=== PATIENT | male | born 1970 | race Hispanic/Latino ===

== ENCOUNTER 2018-03-14 07:10 | Emergency (ER) | payer BC ==
[2018-03-14 07:35] VITALS: TEMP 97.2; BMI 33.0
[2018-03-14] MEDS ORDERED: DiphenhydrAMINE 50 mg/ml Inj IM STA (08:01)
[2018-03-14] MEDS ORDERED: MethylPREDNISolone Depo 40 mg/ml Inj IM STA (08:01)
--- NOTE | 2018-03-14 08:06 | ED PDOC ---
Arrival/HPI - General Chief Complaint: Back Pain Time Seen by Provider: 03/14/18 07:55 Historian: Patient - History of Present Illness Narrative History of Present Illness (Text): 03/14/18 08:02 Evgeny Oneill is a 47 year old male with no significant past medical history, who presents to the emergency department complaining of left lower back pain radiating down his left lower extremity. The patient states that his symptoms began 2 days ago and has been experiencing difficulty sitting since then. He notes that 2 days ago he was removing a pool cover with his son. He states that walking relieves some of his discomfort. The patient is requesting pain medication. He denies fevers, chills, headache, dizziness, chest pain, shortness of breath, dyspnea on exertion, cough, abdominal pain, nausea, vomiting, diarrhea, neck pain, urinary/bowel changes, or any other complaint. PMD: Dr. Vikas Cruz Time/Duration: Other (2 Days) Symptom Onset: Sudden Symptom Course: Unchanged Activities at Onset: Rest, Light Context: Home Past Medical History - Provider Review Nursing Documentation Reviewed: Yes - Infectious Disease Hx of Infectious Diseases: None - Tetanus Immunization Tetanus Immunization: Unknown - Cardiac Hx Cardiac Disorders: No - Pulmonary Hx Respiratory Disorders: No - Neurological Hx Neurological Disorder: No - HEENT Hx HEENT Disorder: No - Renal Hx Renal Disorder: No - Endocrine/Metabolic Hx Endocrine Disorders: No - Hematological/Oncological Hx Blood Disorders: No - Integumentary Hx Dermatological Disorder: No - Musculoskeletal/Rheumatological Hx Musculoskeletal Disorders: Yes Hx Back Pain: Yes - Gastrointestinal Hx Gastrointestinal Disorders: No - Genitourinary/Gynecological Hx Genitourinary Disorders: No - Psychiatric Hx Depression: No Hx Emotional Abuse: No Hx Physical Abuse: No Hx Substance Use: No - Surgical History Other/Comment: throat nodule removed - Suicidal Assessment Feels Threatened In Home Enviroment: No Family/Social History - Physician Review Nursing Documentation Reviewed: Yes Family/Social History: No Known Family HX Smoking Status: Heavy Smoker > 10 Cigarettes Daily Hx Alcohol Use: No Hx Substance Use: No Allergies/Home Meds Allergies/Adverse Reactions: Allergies No Known Allergies Allergy (Verified 03/14/18 07:33) Home Medications: Home Meds Medication Instructions Recorded Confirmed No Known Home Med [No Known Home 11/24/13 03/14/18 Med] Review of Systems - Physician Review All systems were reviewed & negative as marked: Yes - Review of Systems Constitutional: absent: Fevers, Night Sweats Respiratory: absent: SOB, Cough Cardiovascular: absent: BAILEY Gastrointestinal: absent: Abdominal Pain, Stool Changes, Diarrhea, Nausea, Vomiting Genitourinary Male: absent: Urinary Output Changes Musculoskeletal: Back Pain (Left lower back pain radiating down left lower extremity. ). absent: Neck Pain Neurological: absent: Headache, Dizziness Physical Exam Vital Signs Reviewed: Yes Vital Signs Temp Pulse Resp BP Pulse Ox 03/14/18 07:34 97.2 F L 82 22 169/121 H 98 Temperature: Hypothermic Blood Pressure: Hypertensive Pulse: Regular Respiratory Rate: Normal Appearance: Positive for: Well-Appearing, Non-Toxic Pain Distress: None Mental Status: Positive for: Alert and Oriented X 3 - Systems Exam Head: Present: Atraumatic, Normocephalic Pupils: Present: PERRL Extroacular Muscles: Present: EOMI Conjunctiva: Present: Normal Mouth: Present: Moist Mucous Membranes Neck: Present: Normal Range of Motion Respiratory/Chest: Present: Clear to Auscultation, Good Air Exchange. No: Respiratory Distress, Accessory Muscle Use Cardiovascular: Present: Regular Rate and Rhythm, Normal S1, S2. No: Murmurs Abdomen: No: Tenderness, Distention, Peritoneal Signs Back: Present: Normal Inspection Upper Extremity: Present: Normal Inspection. No: Cyanosis, Edema Lower Extremity: Present: Tenderness (Tenderness to left sciatic notch) Neurological: Present: GCS=15, CN II-XII Intact, Speech Normal Skin: Present: Warm, Dry, Normal Color. No: Rashes Psychiatric: Present: Alert, Oriented x 3, Normal Insight, Normal Concentration Medical Decision Making ED Course and Treatment: 03/14/18 08:06 Impression: A 47 year old male presents to the emergency department complaining of 2 day duration left lower back pain radiating down left lower extremity. Plan: -- Lumbasr Spine CT -- Valium, Benadryl, Morphine, and DEPO- Medrol -- Reassess and disposition Progress Notes: PROCEDURE: CT Lumbar Spine without contrast Dictator : Jean Carlos Franklin MD Report Date : 03/14/2018 08:59:33 IMPRESSION: Large left-sided disc herniation at L3-4 extruded inferiorly into the left L4 lateral recess. Disc degeneration and disc bulging at L4-5 with a small central protrusion. There is moderate stenosis. - RAD Interpretation Radiology Orders: 03/14/18 08:04 LUMBAR SPINE W/O CONTRAST [CT] Stat - Medication Orders Current Medication Orders: Discontinued Medications Diazepam (Valium) 5 mg PO ONCE ONE PRN Reason: Protocol Stop: 03/14/18 08:02 Last Admin: 03/14/18 09:02 Dose: 5 mg Diphenhydramine HCl (Benadryl) 50 mg IM STAT STA Stop: 03/14/18 08:02 Last Admin: 03/14/18 09:01 Dose: 50 mg IM Administration Charges Document 03/14/18 09:01 JRA (Rec: 03/14/18 09:02 [facility] [id number]) Injection Site MAR Injection Site Left Deltoid Charges for Administration # of IM Administrations 1 Methylprednisolone Acetate (Depo-Medrol) 80 mg IM STAT STA Stop: 03/14/18 08:02 Last Admin: 03/14/18 09:02 Dose: 80 mg IM Administration Charges Document 03/14/18 09:02 JRA (Rec: 03/14/18 09:02 [facility] [id number]) Injection Site MAR Injection Site Right Deltoid Charges for Administration # of IM Administrations 1 Morphine Sulfate (Morphine) 10 mg IM STAT STA Stop: 03/14/18 08:02 - Scribe Statement The provider has reviewed the documentation as recorded by the Ally Swann Provider Scribe Attestation: All medical record entries made by the Scribe were at my direction and personally dictated by me. I have reviewed the chart and agree that the record accurately reflects my personal performance of the history, physical exam, medical decision making, and the department course for this patient. I have also personally directed, reviewed, and agree with the discharge instructions and disposition. Disposition/Present on Arrival - Present on Arrival Any Indicators Present on Arrival: No History of DVT/PE: No History of Uncontrolled Diabetes: No Urinary Catheter: No History of Decub. 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 You need to follow up with Neurosurgery. Percocet is for really bad pain (it is a narcotic and therefore addicting)- take it only if you absolutely need it. It will upset your stomach, that is what the Zofran ODT is for. Flexeril is for muscle spasm. Motrin is to decrease the inflammation. Return to us if worse or new symptoms. Best- Dr. Joseph Bello Referrals: Tao Funez MD [Staff Provider] - Follow up with primary Forms: [employer] (Slovak)
--- NOTE | 2018-03-14 09:01 | CT ---
PROCEDURE: CT Lumbar Spine without contrast HISTORY: Left Sided Lumbar Radiculopathy COMPARISON: None. TECHNIQUE: Axial computed tomography images were obtained of the lumbar spine without the use of intravenous contrast. Coronal and sagittal reformatted images were created and reviewed. Radiation dose: Total exam DLP = 1229 mGy-cm. This CT exam was performed using one or more of the following dose reduction techniques: Automated exposure control, adjustment of the mA and/or kV according to patient size, and/or use of iterative reconstruction technique. FINDINGS: VERTEBRAE: Unremarkable. No fracture. Normal alignment. DISCS/SPINAL CANAL/NEURAL FORAMINA: L1-2: Unremarkable. L2-3: Mild disc bulge L3-4: There is a large left-sided disc herniation extruded inferiorly into the left L4 lateral recess L4-5: Disc bulge and degeneration with a small central disc protrusion. Moderate facet arthropathy L5-S1: Disc bulge and facet arthropathy PARASPINAL SOFT TISSUES: Unremarkable. OTHER FINDINGS: None. IMPRESSION: Large left-sided disc herniation at L3-4 extruded inferiorly into the left L4 lateral recess Disc degeneration and disc bulging at L4-5 with a small central protrusion. There is moderate stenosis
[2018-03-14 09:36] VITALS: BP 166/90; PULSE 78; RESP 19; O2SAT 99
== END 2018-03-14 09:35 | disposition home or self-care (01) ==
LOC: ED 07:10
DX: M51.17 Intervertebral disc disorders with radiculopathy, lumbosacral region (principal)
CPT/HCPCS: 72131; 96372; 99283; J1030; J1200; J2270